=== PATIENT | male | born 1970 | race Hispanic/Latino ===

== ENCOUNTER 2020-03-13 09:00 | Inpatient (IN) | payer OTHER ==
[~2020-03-13] VITALS: Ht 177.8 cm; Wt 94.6 kg
[2020-03-13 11:47] LABS: BASOPHILS % (AUTO) 0.6 % (0.0-5.0); EOSINOPHILS % (AUTO) 2.5 % (0.0-8.0); HEMATOCRIT 52.6 % (42-54); LYMPHOCYTES % (AUTO) 30.1 % (21.0-51.0); MEAN CORPUSCULAR HEMOGLOBIN 26.5 pg (27.0-33.0); MEAN CORPUSCULAR HGB CONC 32.5 g/dL (32.0-36.0); MEAN CORPUSCULAR VOLUME 81.6 fL (79-99); MONOCYTES % (AUTO) 7.9 % (3.0-13.0); NEUTROPHILS % (AUTO) 58.4 % (40.0-77.0); PLATELET COUNT (AUTO) 285 K/uL (130-400); RED BLOOD CELL COUNT(AUTO) 6.45 MIL/uL (4.50-6.20); RED CELL DISTRIBUTION WIDTH 14.3 % (11.0-15.5); WHITE BLOOD COUNT (AUTO) 8.4 K/uL (4.8-10.8)
[2020-03-13 11:55] LABS: POTASSIUM 4.1 mmol/L (3.5-5.1)
[2020-03-20 08:39] VITALS: BP 131/89
[2020-03-20] MEDS ORDERED: GABA-529 PO (08:46)
[2020-03-20] MEDS ORDERED: TRAM50TA4 PO (08:46)
[2020-03-20] MEDS ORDERED: CYCL10TA7 PO (08:46)
--- NOTE | 2020-03-20 10:56 | NUR ---
XRAY ABNORMAL CXR REPORTED TO DR. PRATT. NO FURTHER ORDERS GIVEN OK TO PROCEED WITH PLANNED SURGERY
[2020-03-21] VITALS (21 sets, daily range): BP systolic 105–140; BP diastolic 75–89
[2020-03-21] MEDS: CEFAZOLIN SODIUM 1 GM VIAL IVP SCH ×4 (05:00→21:05)
[2020-03-21] MEDS ORDERED: LACTATED RINGERS 1000ML 1,000 ML IV ONE (06:11)
[2020-03-21] MEDS ORDERED: ATOR10TA69 PO (06:33)
[2020-03-21] MEDS ORDERED: BUPIVACAINE/EPI/PF 0.25% 30ML VIAL IJ ONE (06:45)
[2020-03-21] MEDS ORDERED: THROMBIN-JMI 20000 UNIT KIT TP ONE (06:45)
[2020-03-21] MEDS ORDERED: DURAMORPH PF1 MG/ML 10ML AMP IV ONE (06:45)
[2020-03-21] MEDS: CEFAZOLIN SODIUM 1 GM VIAL ONE ×2 (07:00→12:15)
[2020-03-21] MEDS ORDERED: LIDOCAINE PF 2% 5ML ABBOJECT ONE (07:18)
[2020-03-21] MEDS ORDERED: MIDAZOLAM HCL 1 MG/ML 2ML VIAL ONE (07:19)
[2020-03-21] MEDS ORDERED: NEOSTIGMINE 5MG/5ML SYR IV ONE (07:19)
[2020-03-21] MEDS ORDERED: PROPOFOL 10 MG/ML 20ML VIAL IV ONE (07:19)
[2020-03-21] MEDS ORDERED: DEXAMETHASONE SOD PHOSPHATE 10MG/ML 1ML VIAL ONE ×2 (07:19→12:40)
[2020-03-21] MEDS ORDERED: GLYCOPYRROLATE 1 MG/5 ML SYRINGE ONE (07:19)
[2020-03-21] MEDS ORDERED: FENTANYL CITRATE PF 50 MCG/1 ML 2ML VIAL ONE ×2 (07:20→11:43)
[2020-03-21] MEDS ORDERED: ONDANSETRON HCL 4 MG/2 ML VIAL ONE ×2 (07:20→12:40)
[2020-03-21] MEDS ORDERED: ROCURONIUM 10MG/1ML SYR 10 MG/ML ML ONE ×2 (07:20→08:13)
[2020-03-21] MEDS ORDERED: FENTANYL CITRATE PF 50 MCG/1 ML 5ML AMP IV ONE (07:44)
[2020-03-21] MEDS ORDERED: ESMOLOL HCL 10 MG/ML 10 ML VIAL ONE (08:02)
[2020-03-21] MEDS ORDERED: GENTAMICIN 80 MG/NS 100 ML PB 100 ML IV ONE (09:11)
[2020-03-21] MEDS ORDERED: CEFAZOLIN SODIUM 1 GM VIAL ONE ×3 (12:12→12:17)
[2020-03-21] MEDS ORDERED: KETOROLAC TROMETHAMINE 30MG/ML ONE (12:41)
[2020-03-21] MEDS ORDERED: MEPERIDINE-PF 25 MG/ML SYG ONE (12:59)
[2020-03-21] MEDS: LACTATED RINGERS 1000ML 1,000 ML IV SCH (13:07)
[2020-03-21] MEDS ORDERED: DEXAMETHASONE SOD PHOSPHATE 4 MG/ML 1ML VIAL IVP SCH (13:15)
[2020-03-21] MEDS ORDERED: SODIUM CHLORIDE 0.9% 10 ML VIAL IVP PRN (13:15)
[2020-03-21] MEDS ORDERED: TRAMADOL HCL 50 MG TABLET PO PRN (13:15)
[2020-03-21] MEDS ORDERED: CYCLOBENZAPRINE HCL 10 MG TABLET PO PRN (13:15)
[2020-03-21] MEDS ORDERED: HYDROCODONE/ACETAMINOPHEN 5/325 MG TAB PO PRN (13:15)
[2020-03-21] MEDS ORDERED: PROMETHAZINE HCL 25 MG/ML 1ML AMPULE IM PRN (13:15)
[2020-03-21] MEDS: GABAPENTIN 100 MG CAPSULE PO SCH ×2 (14:00→21:05)
[2020-03-21] MEDS ORDERED: ATORVASTATIN CALCIUM 10 MG TABLET PO SCH (21:00)
[2020-03-21] MEDS: MORPHINE SULFATE 2 MG/ML 1ML SYG IVP PRN ×2 (21:06→23:17)
[2020-03-21] MEDS: DEXAMETHASONE SOD PHOSPHATE 4 MG/ML 1ML VIAL IVP SCH (23:17)
[2020-03-22] VITALS: BP 126/83
[2020-03-22] MEDS: LACTATED RINGERS 1000ML 1,000 ML IV SCH (00:40)
[2020-03-22] MEDS: MORPHINE SULFATE 2 MG/ML 1ML SYG IVP PRN (01:33)
[2020-03-22 04:00] VITALS: BP 117/77
[2020-03-22] MEDS: CEFAZOLIN SODIUM 1 GM VIAL IVP SCH ×2 (05:00→05:15)
[2020-03-22] MEDS: DEXAMETHASONE SOD PHOSPHATE 4 MG/ML 1ML VIAL IVP SCH (05:38)
[2020-03-22 08:38] VITALS: BP 136/79
[2020-03-22] MEDS: GABAPENTIN 100 MG CAPSULE PO SCH (09:19)
--- NOTE | 2020-03-22 11:50 | NUR ---
DISCHARGE PATIENT GIVEN DISCHARGE INSTRUCTIONS AND EDUCATION ON FOLLOW UP APPOINTMENTS AND NEW PRESCRIBED MEDICATION. PATIENT VERBALIZED UNDERSTANDING OF ALL EDUCATION GIVEN VIA TEACH BACK, REFERENCE MATERIAL PROVIDED. IV DISCONTINUED CATHETER INTACT. NO DISTRESS NOTED UPON DISCHARGE ALL BELONGINGS TAKEN WITH. STAPLE REMOVER PROVIDED FOR FOLLOW UP APPOINTMENT. DRESSING CHANGE NEW DRESSING APPLIED CLEANSE SITE WITH IODINE, 4X4 GAUZE APPLIED, NATALI D/C. 4X4 AND TAPE APPLIED. PATIENT TOLERATED WELL.
--- NOTE | 2020-03-22 18:55 | NUR ---
DC PLAN PATIENT DISCHARGED HOME. ALREADY GONE NO NEEDS VERBALIZED BY NURSING STAFF. Addendum: 03/22/20 at 1858 by DEBBIE DE LEON RN CM Amended: Links added.
== END 2020-03-22 12:30 | disposition home or self-care (01) | DRG 460 ==
LOC: EDSTATUS 09:00 → DAHIP 03-21 05:50 → 3DH 03-21 13:38
PROVIDERS: ADMIT Neurological Surgery; ATTEND Neurological Surgery
PROC: 0SG30AJ Fusion of Lumbosacral Joint with Interbody Fusion Device, Posterior Approach, Anterior Column, Open Approach (ICD-10-PCS; principal; 2020-03-21 07:22)
PROC: 0SB40ZZ Excision of Lumbosacral Disc, Open Approach (ICD-10-PCS; 2020-03-21 07:22)
DX: M48.07 Spinal stenosis, lumbosacral region (principal); M51.27 Other intervertebral disc displacement, lumbosacral region; Z90.49 Acquired absence of other specified parts of digestive tract; M54.17 Radiculopathy, lumbosacral region; J45.909 Unspecified asthma, uncomplicated; D18.03 Hemangioma of intra-abdominal structures; Z20.828 Contact with and (suspected) exposure to other viral communicable diseases
CPT/HCPCS: 36415; 71045; 72110; 80051; 85025; 93005; A4344; G0378; J0690; J1100; J1580; J1885; J2001; J2175; J2250; J2274; J2405; J2704; J2710; J3010; J3490; J7030; J7120; U0003

== ENCOUNTER → 2020-04-24 | Outpatient (CLI) | payer OTHER ==
[~2020-04-24] MED LIST: ATOR10TA69 PO; CYCL10TA7 PO; GABA-529 PO; TRAM50TA4 PO
== END | disposition home or self-care (01) ==
LOC: OIH 04-19 13:55
PROVIDERS: ATTEND Neurological Surgery
DX: M47.817 Spondylosis without myelopathy or radiculopathy, lumbosacral region (principal); M48.07 Spinal stenosis, lumbosacral region; M43.26 Fusion of spine, lumbar region
CPT/HCPCS: 72100